=== PATIENT | female | born 1955 | race Caucasian/White ===

== ENCOUNTER 2017-08-07 00:57 | Emergency (ER) | payer OTHER ==
[~2017-08-07] VITALS: Ht 149.9 cm; Wt 81.6 kg
[2017-08-07] MEDS ORDERED: ACETAMINOPHEN ES 500 MG TABLET ONE (01:37)
[2017-08-07] MEDS ORDERED: ASPIRIN 325 MG TABLET ONE (01:51)
[2017-08-07] MEDS ORDERED: ASPIRIN 325 MG TABLET PO ONE (02:00)
[2017-08-07] MEDS ORDERED: ACETAMINOPHEN 325 MG TABLET PO ONE (02:00)
[2017-08-07] MEDS ORDERED: IV NS 0.9% 1,000 ML BAG IV ONE (02:00)
[2017-08-07 02:09] LABS: BASOPHILS % (AUTO) 0.3 % (0.0-2.0); HEMATOCRIT 39 % (33-45); HEMOGLOBIN 12.9 g/dL (11.5-14.8); LYMPHOCYTES # (AUTO) 0.4 /CMM (0.8-4.8); LYMPHOCYTES % (AUTO) 2.7 % (20.0-44.0); MEAN CORPUSCULAR HEMOGLOBIN 26 PG (26.0-33.0); MEAN CORPUSCULAR HGB CONC 33 g/dl (31.0-36.0); MEAN CORPUSCULAR VOLUME 80 fL (82-100); MONOCYTES # (AUTO) 0.2 /CMM (0.1-1.30); MONOCYTES % (AUTO) 1.5 % (2.0-12.0); NEUTROPHILS # (AUTO) 12.9 /CMM (1.8-8.9); NEUTROPHILS % (AUTO) 95.5 % (43.0-81.0); PLATELET COUNT (AUTO) 241 /CMM (150-450); WHITE BLOOD COUNT (AUTO) 13.5 K/uL (4.3-11.0)
[2017-08-07 02:20] LABS: CALCIUM, SERUM 8.9 mg/dL (8.5-10.1); CARBON DIOXIDE 25 mmol/L (21-32); CHLORIDE 99 mmol/L (98-107); CREATININE 0.9 mg/dL (0.6-1.3); GLUCOSE 320 mg/dL (74-106); POTASSIUM 3.5 mmol/L (3.5-5.1); SODIUM SERUM 136 mmol/L (136-145); UREA NITROGEN, BLOOD 10 mg/dL (7-18)
[2017-08-07 02:29] LABS: TROPONIN I < 0.017 ng/mL (0.00-0.056)
--- NOTE | 2017-08-07 02:31 | NUR ---
pt presented to the er with a c/o chest pain with cough and congestion. Pt is [place] speaking only and her son is at the bedside. Pt is on the monitor and continous pulse ox. resp even and unlabored. pt is slightly tachy on the monitor. IV line started and blood drawn. influenza swab done.
[2017-08-07 02:33] LABS: INR 1.03 (0.87-1.13); PROTHROMBIN TIME 10.7 SECS (9.5-12.7)
--- NOTE | 2017-08-07 03:30 | NUR ---
Pt appears to be sleeping comfortably with no s/s of pain or distress.
--- NOTE | 2017-08-07 04:01 | NUR ---
dr guevara is at the bedside speaking to the pt re: discharge.
--- NOTE | 2017-08-07 04:21 | NUR ---
PT AMBULATED TO THE BATHROOM WITH A STEADY GAIT.
[2017-08-07] MEDS ORDERED: AZITHROMYCIN 250 MG TABLET ONE (04:26)
[2017-08-07] MEDS ORDERED: AZITHROMYCIN 250 MG TABLET PO ONE (04:30)
--- NOTE | 2017-08-07 04:32 | NUR ---
IV removed. Catheter intact and site benign. Pressure and 4x4 applied to site. No bleeding noted.Patient discharged to home in stable condition. Written and verbal after care instructions given. Patient verbalizes understanding of instruction AND RX. PT REC'D 1ST DOSE OF ANTIBIOTICS HERE. PT AMBULATED OUT WITH A STEADY GAIT. VSS
[2017-08-07 04:34] VITALS: BP 109/59
== END 2017-08-07 04:35 | disposition home or self-care (01) ==
LOC: ER 01:07
DX: B34.9 Viral infection, unspecified (principal); R50.9 Fever, unspecified; E86.0 Dehydration; E11.9 Type 2 diabetes mellitus without complications; I10 Essential (primary) hypertension; Z79.82 Long term (current) use of aspirin
CPT/HCPCS: 36415; 71010; 80048; 84484; 85025; 85730; 87804; 93005; 96360; 99285; A4606; J7030; Z7610; 87400